=== PATIENT | female | born 2005 | race African-American/Black ===

== ENCOUNTER 2025-03-12 00:38 | Inpatient (IN) | payer OTHER ==
[~2025-03-12] VITALS: Ht 167.6 cm; Wt 90.9 kg
[2025-03-12] MEDS: ACETAMINOPHEN 160 MG/5 ML SUSP UDC DYE-FREE PO ONE ×2 (00:55→13:51)
[2025-03-12 08:22] LABS: C REACTIVE PROTEIN QUANTITATIV 5.33 MG/DL (<1.0)
[2025-03-12 08:23] LABS: ALT/SGPT 154 U/L (7.0-40); AST/SGOT 89 U/L (<34); CALCIUM LEVEL 8.4 MG/DL (8.5-10.1); CARBON DIOXIDE LEVEL 23 MMOL/L (20-31); CHLORIDE LEVEL 102 MMOL/L (98-107); CREATININE FOR GFR 0.63 MG/DL (0.55-1.30); GLOMERULAR FILTRATION RATE > 90.0 (>60); POTASSIUM SERUM 4.5 MMOL/L (3.5-5.1); SODIUM LEVEL 134 MMOL/L (136-145)
[2025-03-12 08:29] LABS: ATYPICAL LYMPH 12 % (0-5); LYMPHOCYTES 35 % (16-44); MONOCYTES 5 % (0-5); NEUTROPHILS 42 % (28-66); PLATELET ESTIMATE INVALID (NORMAL)
[2025-03-12 08:43] LABS: ERYTHROCYTE SEDIMENTATION RATE > 130 mm/hr (0-20)
[2025-03-12] MEDS: NS (Normal Saline) 0.9% 1,000 ML IV ONE ×2 (10:40→13:53)
[2025-03-12] MEDS: ONDANSETRON 4MG 2ML VIAL IV ONE (10:40)
[2025-03-12] MEDS: KETOROLAC 30 MG/ML 1 ML VIAL IV ONE (10:41)
[2025-03-12 13:03] LABS: BASO # 0.1 10^3/uL (0.0-0.2); BASO % 0.9 % (0.0-1.0); EOS # 0.0 10^3/uL (0.0-0.5); EOS % 0.0 % (0.0-3.0); LYMPH # 9.1 10^3/uL (1.5-5.0); LYMPH % 59.0 % (24.0-44.0); MONO # 1.5 10^3/uL (0.0-0.8); MONO % 9.6 % (2.0-8.0); NEUTROPHILS # 4.7 10^3/uL (1.5-8.5); NEUTROPHILS % 30.1 % (36.0-66.0); PLATELET COUNT, AUTOMATED 193 10^3/uL (150-450)
[2025-03-12] MEDS ORDERED: ZYRT10TA12 PO (14:35)
[2025-03-12] MEDS ORDERED: IBUP200C29 PO (14:35)
[2025-03-12] MEDS ORDERED: HOME MED LIST COMPLETE! XX SCH (14:35)
[2025-03-12] MEDS: PANTOPRAZOLE 40MG VIAL IV SCH (15:43)
[2025-03-12] MEDS: NS (Normal Saline) 0.9% 1,000 ML IV SCH (15:43)
[2025-03-12] MEDS: KETOROLAC 30 MG/ML 1 ML VIAL IV SCH (17:33)
[2025-03-13] MEDS: LIDOCAINE VISCOUS 2% SOLN 15 ML UDC SS PRN (03:27)
[2025-03-13 08:10] LABS: PLATELET COUNT, AUTOMATED 189 10^3/uL (150-450)
[2025-03-13 08:28] LABS: ATYPICAL LYMPH 21 % (0-5); LYMPHOCYTES 36 % (16-44); MONOCYTES 8 % (0-5); NEUTROPHILS 35 % (28-66)
[2025-03-13 08:29] LABS: PLATELET ESTIMATE NORMAL (NORMAL)
[2025-03-13 08:43] LABS: ALT/SGPT 141 U/L (7.0-40); CALCIUM LEVEL 8.0 MG/DL (8.5-10.1); CARBON DIOXIDE LEVEL 25 MMOL/L (20-31); CHLORIDE LEVEL 105 MMOL/L (98-107); CREATININE FOR GFR 0.60 MG/DL (0.55-1.30); GLOMERULAR FILTRATION RATE > 90.0 (>60); POTASSIUM SERUM 4.0 MMOL/L (3.5-5.1); SODIUM LEVEL 138 MMOL/L (136-145)
[2025-03-13] MEDS: PENICILLIN V POTASSIUM 500 MG TAB PO SCH (08:50)
[2025-03-13] MEDS ORDERED: ACETAMINOPHEN 500 MG TAB PO ONE (08:55)
[2025-03-13] MEDS: ACETAMINOPHEN 325 MG/10.15 ML UDC PO ONE (10:03)
[2025-03-13 11:45] VITALS: BP 125/93; TEMP 96.8; O2SAT 100
[2025-03-13 12:00] VITALS: BP 125/93; TEMP 96.8; O2SAT 100
[2025-03-13] MEDS ORDERED: LIDVISCBTL PO (12:02)
[2025-03-13] MEDS ORDERED: PENI25SS PO (12:02)
[2025-03-13] MEDS ORDERED: IBUP100S53 PO (12:02)
[2025-03-13] MEDS: FUROSEMIDE 20 MG/2 ML VIAL IV ONE (12:18)
[2025-03-14 06:27] LABS: AST/SGOT 85 U/L (<34)
== END 2025-03-13 14:43 | disposition home or self-care (01) | DRG 866 ==
LOC: M ED 00:38 → M ED INP 14:55 → M MS5PR 03-13 11:34
PROVIDERS: ADMIT Internal Medicine Nephrology; ATTEND Internal Medicine Nephrology
DX: B27.89 Other infectious mononucleosis with other complication (principal); Z91.018 Allergy to other foods; R74.01 Elevation of levels of liver transaminase levels; B95.5 Unspecified streptococcus as the cause of diseases classified elsewhere; J02.0 Streptococcal pharyngitis